=== PATIENT | female | born 1985 | race American Indian/Alaskan Native ===

== ENCOUNTER 2018-12-06 16:45 | Emergency (ER) | payer OTHER ==
--- NOTE | 2018-12-06 17:07 | Emergency Department Report ---
ED Chest Pain HPI - General Stated Complaint: HANDS SWELLING/MARRY Time Seen by Provider: 12/06/18 17:01 Limitations: No Limitations - History of Present Illness Initial Comments: Patient is a 33-year-old female that presents to emergency with complaints of shortness of breath, chest pain and anxiety. Patient states that she was recently arrested and after being taken into custody the patient began to have chest pain and shortness of breath and felt anxious. Patient states she developed left chest pain that is not radiating. Patient states it's a 3 out of 10. Patient states it is resolved since coming to the hospital. Patient has not taken any medications. Patient states the chest pain is worse with her anxiety and movement and palpation and having her hands cuffed behind her back. Patient states the pain is better with rest and remaining still. Patient states there is no change in her pain with exertion. Patient denies past medical history. Patient denies allergies. Patient denies allergy to metal. Patient does not take any medications. Patient states she is currently on her period. MD Complaint: chest pain -: Sudden Pain Location: left chest Severity: mild Severity scale (0 -10): 3 Quality: tightness Consistency: now resolved Improves With: rest Worsens With: palpation, movement, other (having the handcuffs behind her back made the chest pain worse) re: dyspnea, other (anxiety). denies: nausea, vomting, diaphoresis, sense of impending doom Other Symptoms: denies: cough, fever, syncope, rash, acid taste in mouth, leg swelling, palpitations, burping Treatments Prior to Arrival: none Aspirin use within the Past 7 Days: (0) No - Related Data On Oral Contraceptives: No Heart Score - HEART Score History: Slightly suspicious EKG: Normal Age: < 45 ED Review of Systems ROS: Stated complaint: HANDS SWELLING/MARRY Other details as noted in HPI Critical care attestation.: If time is entered above; I have spent that time in minutes in the direct care of this critically ill patient, excluding procedure time. ED Disposition Condition: Stable
--- NOTE | 2018-12-06 17:12 | Emergency Department Report ---
ED General Adult HPI - General Chief complaint: Chest Pain Stated complaint: HANDS SWELLING/MARRY Time Seen by Provider: 12/06/18 17:01 Source: patient, EMS Mode of arrival: Ambulatory Limitations: No Limitations - History of Present Illness Initial comments: Patient is a 33-year-old female that presents to emergency with complaints of shortness of breath, chest pain and anxiety that started approximately 2 hours ago.. Patient states that she was recently arrested and after being taken into custody the patient began to have chest pain and shortness of breath and felt anxious. Patient states she developed left chest pain that is not radiating. Patient states it's a 3 out of 10. Patient states it is resolved since coming to the hospital. Patient has not taken any medications. Patient states the chest pain is worse with her anxiety and movement and palpation and having her hands cuffed behind her back. Patient states the pain is better with rest and remaining still. Patient states there is no change in her pain with exertion. Patient denies past medical history. Patient denies allergies. Patient denies allergy to metal. Patient does not take any medications. Patient states she is currently on her period. Officers are at bedside and state they needed clearance for incarceration -: Sudden Location: chest Severity scale (0 -10): 3 Consistency: now resolved Improves with: rest Worsens with: movement, rest, other (palpation) Associated Symptoms: chest pain, shortness of breath, other (anxiety). denies: confusion, cough, diaphoresis, fever/chills, headaches, loss of appetite, malaise, nausea/vomiting, rash, seizure, syncope, weakness Treatments Prior to Arrival: none - Related Data Allergies Allergy/AdvReac Type Severity Reaction Status Date / Time No Known Allergies Allergy Unverified 12/06/18 17:29 ED Review of Systems ROS: Stated complaint: HANDS SWELLING/MARRY Other details as noted in HPI Constitutional: denies: chills, fever Eyes: denies: eye pain, eye discharge, vision change ENT: denies: ear pain, throat pain Respiratory: shortness of breath. denies: cough, wheezing Cardiovascular: chest pain. denies: palpitations Endocrine: no symptoms reported Gastrointestinal: denies: abdominal pain, nausea, diarrhea Genitourinary: denies: urgency, dysuria, discharge Musculoskeletal: denies: back pain, joint swelling, arthralgia Skin: denies: rash, lesions Neurological: denies: headache, weakness, paresthesias Psychiatric: anxiety. denies: depression Hematological/Lymphatic: denies: easy bleeding, easy bruising ED Past Medical Hx - Past Medical History Previous Medical History?: No - Surgical History Past Surgical History?: No - Family History Family history: no significant - Social History Smoking Status: Current Every Day Smoker Substance Use Type: None ED Physical Exam - General Limitations: No Limitations General appearance: alert, in no apparent distress - Head Head exam: Present: atraumatic, normocephalic - Eye Eye exam: Present: normal appearance, PERRL Pupils: Present: normal accommodation - ENT ENT exam: Present: mucous membranes moist - Neck Neck exam: Present: normal inspection, full ROM. Absent: tenderness, meningismus - Respiratory Respiratory exam: Present: normal lung sounds bilaterally, chest wall tenderness (palpation of left chest reproduces symptoms.). Absent: respiratory distress, wheezes, rales - Cardiovascular Cardiovascular Exam: Present: regular rate, normal rhythm. Absent: systolic murmur, diastolic murmur, rubs, gallop - GI/Abdominal GI/Abdominal exam: Present: soft, normal bowel sounds. Absent: distended, tenderness, guarding - Rectal Rectal exam: Present: deferred - Extremities Exam Extremities exam: Present: normal inspection, full ROM. Absent: tenderness, calf tenderness - Back Exam Back exam: Present: normal inspection, full ROM. Absent: tenderness - Neurological Exam Neurological exam: Present: alert, oriented X3 - Psychiatric Psychiatric exam: Present: normal affect, normal mood - Skin Skin exam: Present: warm, dry, intact, normal color. Absent: rash ED Course Vital Signs 12/06/18 12/06/18 12/06/18 17:02 17:20 19:06 Temperature 98.7 F 98.4 F Pulse Rate 82 79 Respiratory 16 16 16 Rate Blood Pressure 113/70 Blood Pressure 113/64 [Right] O2 Sat by Pulse 99 99 99 Oximetry - Reevaluation(s) Reevaluation #1: Initial evaluation done. Patient will require medical clinic perforation. Patient will have labs and EKG done. 12/06/18 17:10 Reevaluation #2: I discussed all results with patient. Patient was understanding of results. Patient given plaster. Patient will be discharged to the custody of the police. Patient is stable for discharge. Patient given discharge instructions. Patient was understanding discharge instructions. 12/06/18 19:09 ED Medical Decision Making - Lab Data Result diagrams: 12/06/18 17:25 12/06/18 17:25 - EKG Data -: EKG Interpreted by Me EKG shows normal: sinus rhythm, axis, intervals, QRS complexes, ST-T waves Rate: normal - Radiology Data Radiology results: report reviewed, image reviewed interpreted by me: No acute findings on chest x-ray. CHEST 1 VIEW, 12/06/2018 INDICATION: Chest pain. COMPARISON: None FINDINGS: Support devices: None Heart: Cardiac silhouette and pulmonary vascularity appear within normal limits. Lungs/pleura: Lungs are well expanded and appear clear of focal airspace disease or significant pleural effusion. Additional findings: No additional acute findings. IMPRESSION: 1. No evidence of acute cardiopulmonary process. - Medical Decision Making Patient is a 33-year-old female that presents emergency room with complaints of chest pain and shortness of breath and anxiety. Patient's clinical findings are consistent with musculoskeletal pain and anxiety. Patient was brought in by the police and the police required a medical clearance. Nurse in the room during every interaction. Patient is stable and medically clear for confinement. Patient's low risk heart score. Patient's heart score is 0. Anne ent's labs unremarkable. Patient's chest x-ray negative. Patient will be discharged to the custody of the police. - Differential Diagnosis chest pain. Anxiety. Chest wall pain. Costochondritis Critical care attestation.: If time is entered above; I have spent that time in minutes in the direct care of this critically ill patient, excluding procedure time. ED Disposition Clinical Impression: Anxiety, Medical clearance for incarceration, Muscular chest pain Chest pain Qualifiers: Chest pain type: unspecified Qualified Code(s): R07.9 - Chest pain, unspecified Disposition: DC-01 TO HOME OR SELFCARE Is pt being admited?: No Does the pt Need Aspirin: No Condition: Stable Instructions: Chest Pain (ED), Costochondritis (ED), Anxiety (ED) Additional Instructions: PATIENT is medically cleared for incarceration.. Patient follow up with primary care in 2-3 days. Patient be discharged to the care of the police. Patient to return to the ER if condition worsens. Patient to rest. Patient to increase water. . Referrals: LUNA CONTRERAS MD [Primary Care Provider] - 3-5 Days Time of Disposition: 18:46
[2018-12-06 17:41] LABS: Basophils % (Auto) 0.9 % (0.0-1.8); Eosinophils # (Auto) 0.1 K/mm3 (0.0-0.4); Eosinophils % (Auto) 3.3 % (0.0-4.3); Hemoglobin 12.8 gm/dl (10.1-14.3); Lymphocytes # (Auto) 1.6 K/mm3 (1.2-5.4); Lymphocytes % (Auto) 39.5 % (13.4-35.0); Mean Corpuscular HGB Conc 34 % (30-34); Mean Corpuscular Volume 88 fl (79-97); Monocytes # (Auto) 0.4 K/mm3 (0.0-0.8); Monocytes % (Auto) 9.5 % (0.0-7.3); Platelet Count 228 K/mm3 (140-440); Red Blood Count 4.31 M/mm3 (3.65-5.03); Red Cell Distribution Width 13.2 % (13.2-15.2)
[2018-12-06 18:03] LABS: Alanine Aminotransferase 9 units/L (7-56); Albumin 3.9 g/dL (3.9-5); BUN/Creatinine Ratio 10; Blood Urea Nitrogen 9 mg/dL (7-17); Hemolysis Index 16
[2018-12-06 19:03] LABS: Bilirubin,Urine NEG (Negative); Blood,Urine NEG (Negative); Color,Urine Straw (Yellow); Protein,Urine <15 mg/dL mg/dL (Negative); Urobilinogen,Urine < 2.0 mg/dL (<2.0); WBC,Urine < 1.0 /HPF (0.0-6.0)
[2018-12-06 19:11] LABS: Amphetamine Screen,Urine PRESUMPTIVE NEGATIVE; Benzodiazepines Screen,Urine PRESUMPTIVE NEGATIVE; Cannabinoid Screen,Urine PRESUMPTIVE NEGATIVE; Cocaine Screen,Urine PRESUMPTIVE NEGATIVE; Methadone Screen,Urine PRESUMPTIVE NEGATIVE; Opiate Screen,Urine PRESUMPTIVE NEGATIVE
--- NOTE | 2018-12-06 19:24 | XRay Report ---
CHEST 1 VIEW, 12/06/2018 INDICATION: Chest pain. COMPARISON: None FINDINGS: Support devices: None Heart: Cardiac silhouette and pulmonary vascularity appear within normal limits. Lungs/pleura: Lungs are well expanded and appear clear of focal airspace disease or significant pleur al effusion. Additional findings: No additional acute findings. IMPRESSION: 1. No evidence of acute cardiopulmonary process. Signer Name: Jennifer Gaspar MD Signed: 12/06/2018 7:19 PM Workstation Name: [id number]
[2018-12-06 19:28] VITALS: BP 113/64
== END 2018-12-06 19:35 | disposition home or self-care (01) ==
LOC: ED 16:45
DX: R07.89 Other chest pain (principal); R06.02 Shortness of breath; F41.9 Anxiety disorder, unspecified; F17.200 Nicotine dependence, unspecified, uncomplicated; Z79.899 Other long term (current) drug therapy
CPT/HCPCS: 36415; 71045; 80053; 80307; 81001; 84484; 84703; 85025; 93005